=== PATIENT | female | born 1945 | race Caucasian/White ===

== ENCOUNTER 2017-03-24 07:40 | Emergency (ER) | payer MEDICARE, BC ==
[2017-03-24 07:54] VITALS: BP 145/72
--- NOTE | 2017-03-24 08:14 | EDM.PDOC ---
ED HPI GENERAL MEDICAL PROBLEM - General Chief Complaint: General Stated Complaint: ?vaginal bleeding Time Seen by Provider: 03/24/17 08:06 Source of Information: Reports: Patient History Limitations: Reports: No Limitations - History of Present Illness INITIAL COMMENTS - FREE TEXT/NARRATIVE: PT STATES SHE WOKE THIS AM AND NOTICED SMALL AMT OF BLOOD IN PJ BOTTOMS AND ON TISSUE WHEN SHE WIPED AFTER URINATING. DID NOT HAVE BM. UNSURE OF SOURCE. DENIES DYSURIA, ABD PAIN, FEVER, BOWEL CHANGES, N/V, OR H/O SAME IN PAST. Onset: Today Location: Reports: Other (GROIN) Quality: Reports: Other (NO DISCOMFORT) Severity: Mild Improves with: Reports: None Worsens with: Reports: None Associated Symptoms: Reports: No Other Symptoms - Related Data Allergies Allergy/AdvReac Type Severity Reaction Status Date / Time No Known Drug Allergies Allergy Cannot Verified 03/24/17 07:55 Remember Home Meds: Home Meds ALPRAZolam [Alprazolam] 0.5 mg PO BEDTIME 03/24/17 [History] Albuterol [Ventolin HFA] 2 puff INH Q4H PRN 03/24/17 [History] Aspirin [Adult Low Dose Aspirin EC] 81 mg PO DAILY 03/24/17 [History] Calcium Carbonate/Vitamin D3 [Calcium 600 + Vit D 200] 1 tab PO BID 03/24/17 [ History] Cephalexin [Keflex] 500 mg PO TID #21 cap 03/24/17 [Rx] Cholecalciferol (Vitamin D3) [Vitamin D3] 2,000 unit PO Q48H 03/24/17 [History] Cranberry 500 mg PO DAILY 03/24/17 [History] Fexofenadine [Fexofenadine HCl] 90 mg PO BID 03/24/17 [History] Fluticasone/Salmeterol [Advair Diskus 100-50] 1 puff INH BID 03/24/17 [History] Furosemide [Lasix] 20 mg PO DAILY 03/24/17 [History] Horse [place] Seed [Horse [place]] 300 mg PO BID 03/24/17 [History] Losartan [Cozaar] 100 mg PO DAILY 03/24/17 [History] Multivitamin [Multivitamins] 1 each PO DAILY 03/24/17 [History] Nystatin [Nystatin Crm] 1 gm TOP BID 03/24/17 [History] Potassium Chloride 10 meq PO DAILY 03/24/17 [History] amLODIPine [Norvasc] 2.5 mg PO DAILY 03/24/17 [History] ED ROS GENERAL - Review of Systems Review Of Systems: ROS reveals no pertinent complaints other than HPI. Constitutional: Reports: No Symptoms HEENT: Reports: No Symptoms Respiratory: Reports: No Symptoms Cardiovascular: Reports: No Symptoms Endocrine: Reports: No Symptoms GI/Abdominal: Reports: No Symptoms : Reports: Other (POSSIBLE HEMATURIA) Skin: Reports: No Symptoms Neurological: Reports: No Symptoms Psychiatric: Reports: Anxiety Hematologic/Lymphatic: Reports: No Symptoms Immunologic: Reports: No Symptoms ED EXAM, GENERAL - Physical Exam Exam: See Below Exam Limited By: No Limitations General Appearance: Alert, WD/WN, No Apparent Distress Nose: Normal Inspection, No Blood Throat/Mouth: Normal Inspection, Normal Oropharynx, No Airway Compromise Head: Atraumatic, Normocephalic Neck: Normal Inspection Respiratory/Chest: No Respiratory Distress, Lungs Clear, Normal Breath Sounds, No Accessory Muscle Use, Chest Non-Tender Cardiovascular: Regular Rate, Rhythm, No Murmur GI/Abdominal: Normal Bowel Sounds, Soft, Non-Tender, No Organomegaly, No Distention, No Abnormal Bruit, No Mass (Female) Exam: Normal External Exam. No: Vaginal Bleeding, Vaginal Lesions, Vaginal Tears Rectal (Female) Exam: Normal Exam Back Exam: Normal Inspection. No: CVA Tenderness (L), CVA Tenderness (R) Extremities: Pedal Edema (3+ BILAT WITH CHRONIC DERM INVOLVEMENT) Neurological: Alert, Oriented, Normal Cognition Psychiatric: Anxious Skin Exam: Warm, Dry, Intact, Normal Color, No Rash Lymphatic: No Adenopathy Course - Vital Signs Last Recorded V/S: Last Vital Signs Temp 97.7 F 03/24/17 07:49 Pulse 72 03/24/17 07:49 Resp 18 03/24/17 07:49 BP 145/72 H 03/24/17 07:49 Pulse Ox 96 03/24/17 07:49 - Orders/Labs/Meds Orders: Active Orders 24 hr Category Date Time Status CBC WITH AUTO DIFF [HEME] Stat Lab 03/24/17 08:07 Ordered COMPREHENSIVE METABOLIC PN,CMP [CHEM] Stat Lab 03/24/17 08:07 Ordered INR,PT,PROTHROMBIN TIME [COAG] Stat Lab 03/24/17 08:07 Ordered PTT,PARTIAL THROMBOPLSTIN TIME [COAG] Stat Lab 03/24/17 08:07 Ordered UA W/MICROSCOPIC [URIN] Stat Lab 03/24/17 08:07 Uncollected - Re-Assessments/Exams Free Text/Narrative Re-Assessment/Exam: 03/24/17 09:08 PT AFEBRILE, NONTOXIC APPEARING, VSS, WBC ATTRIBUTED TO CHRONIC CONDITION. NO RENAL INVOLVEMENT AND [facility] CONTACTED FOR F/U. Departure - Departure Time of Disposition: 09:12 Disposition: Home, Self-Care 01 Condition: Good Clinical Impression: UTI, Urinary tract infectious disease, Hematuria due to acute cystitis - Discharge Information Instructions: Urinary Tract Infection, Adult Forms: ED Department Discharge Additional Instructions: FOLLOW UP AT [facility] IN NEXT 3 DAYS FOR RECHECK - My Orders Last 24 Hours: My Active Orders 03/24/17 08:07 CBC WITH AUTO DIFF [HEME] Stat COMPREHENSIVE METABOLIC PN,CMP [CHEM] Stat PTT,PARTIAL THROMBOPLSTIN TIME [COAG] Stat UA W/MICROSCOPIC [URIN] Stat - Assessment/Plan Last 24 Hours: My Active Orders 03/24/17 08:07 CBC WITH AUTO DIFF [HEME] Stat COMPREHENSIVE METABOLIC PN,CMP [CHEM] Stat INR,PT,PROTHROMBIN TIME [COAG] Stat PTT,PARTIAL THROMBOPLSTIN TIME [COAG] Stat UA W/MICROSCOPIC [URIN] Stat Assessment:: UTI Plan: F/U AT [facility]
[2017-03-24 09:00] LABS: CHLORIDE,CL 106 mmol/L (98-115); SODIUM,NA 144 mmol/L (136-145)
[2017-03-24] MEDS ORDERED: cefTRIAXone 1 GM Vial IM ONE (09:10)
== END 2017-03-24 09:35 | disposition home or self-care (01) ==
LOC: KA.ED 07:40
DX: N30.01 Acute cystitis with hematuria (principal); Z79.82 Long term (current) use of aspirin; Z79.899 Other long term (current) drug therapy
CPT/HCPCS: 36415; 80053; 81001; 85025; 85610; 85730; 87086; 96372; 99283; J0696